=== PATIENT | female | born 1955 | race Caucasian/White ===

== ENCOUNTER 2020-09-28 15:29 | Outpatient (CLI) | payer OTHER, SELFPAY ==
--- NOTE | ~2020-09-28 | MR_ITS ---
EXAMINATION: MR knee LT wo con DATE: 09/28/2020 16:55 INDICATION: Left knee pain and difficulty walking. TECHNIQUE: Magnetic resonance imaging (MRI) of the left knee was performed without intravenous contra st. Sequences included coronal PD-weighted FSE, coronal PD-weighted FS FSE, sagittal T2-weighted FSE , sagittal PD-weighted FS FSE and axial PD weighted fat saturated FSE. COMPARISON: None. FINDINGS: Medial compartment: Radial tear involving the inner third of the posterior horn of the medial meniscus. Articular cartila ge is normal. Lateral compartment: Thin horizontal line of increased signal which extends to near the free edge of the body of the later al meniscus but which does not unambiguously contact the articular surface which remains equivocal fo r a longitudinal horizontal tear. Articular cartilage is normal. Patellofemoral compartment: Full/near full-thickness chondral ulceration at the patellar apical ridge, lateral side of the medial patellar facet and significant portion of the lateral patellar facet with a couple foci of underlyin g subarticular edema. Additional full/near full thickness cartilage loss along the lateral trochlea w ith subtle cortical irregularity and a few underlying foci of subarticular edema. Chondral fissuring with additional minimal underlying cortical irregularity at the trochlear groove and inferior aspect of the medial trochlea. Ligaments and tendons: Anterior and posterior cruciate ligaments are normal. The medial collateral ligament and fibular bayron ateral ligament complex are normal. Small enthesophytes at the patellar insertion of the distal quadr iceps tendon. The extensor mechanism is otherwise normal. The visualized medial and lateral hamstring tendons as well as the iliotibial band are normal. Fluid: Physiologic amount of fluid in the joint space. No loose osteochondral bodies identified. Tiny Suarez' s cyst. Additional small multilobulated ganglion cyst extending cephalad along the deep margin of the semimembranosus tendon. Osseous/other: There is prominent marrow edema centered around a small linear subarticular low signal intensity like ly impaction fracture line at the lateral sulcus of the lateral femoral condyle. Marrow signal is oth erwise normal. No pathologic marrow replacing process. IMPRESSION: 1. Small subcortical fracture line underlying the lateral sulcus of the lateral femoral condyle. 2. Small radial tear at the anterior third of the posterior horn of the medial meniscus. 3. Possible longitudinal horizontal tear at the body of the lateral meniscus. 4. Mild to moderate osteoarthritis with high-grade chondromalacia in the patellofemoral compartment. Reviewed, dictated and finalized at location A. ER AND CASHIER IMPRESSION: 1. Small subcortical fracture line underlying the lateral sulcus of the lateral femoral condyle. 2. Small radial tear at the anterior third of the posterior horn of the medial meniscus. 3. Possible longitudinal horizontal tear at the body of the lateral meniscus. 4. Mild to moderate osteoarthritis with high-grade chondromalacia in the patell ofemoral compartment.
== END 2020-09-28 15:30 | disposition home or self-care (01) ==
PROVIDERS: PCP Internal Medicine; Visit Provider Internal Medicine
DX: M17.12 Unilateral primary osteoarthritis, left knee (principal); S83.242A Other tear of medial meniscus, current injury, left knee, initial encounter; X58.XXXA Exposure to other specified factors, initial encounter
CPT/HCPCS: 73721

== ENCOUNTER → 2021-05-09 17:18 | Outpatient (CLI) | payer OTHER, SELFPAY ==
--- NOTE | ~2021-05-09 | MM_ITS ---
EXAMINATION: MM screening [facility] BI w mina HISTORY: Screening mammogram, family history of breast cancer in her sister. TECHNIQUE: Craniocaudal and mediolateral oblique 3-D tomosynthesis images were obtained and synthetic 2-D images were generated. CAD analysis was submitted and interpreted. COMPARISON: 11/13/2017, 10/30/2017, 04/18/2016 BREAST PARENCHYMAL COMPOSITION: The breasts are almost entirely fatty. FINDINGS: A stable mass of the upper outer quadrant of the left breast has previously characterized a s a cyst. There is no evidence of suspicious mass, calcification, or architectural distortion to sugg est malignancy in either breast. There has been no suspicious interval change. IMPRESSION: 1. No mammographic evidence of malignancy. 2. Recommend routine screening mammography in one year. BI-RADS Category 2: Benign finding(s). Reviewed, dictated and finalized at location A.
--- NOTE | ~2021-05-09 | DEXA_ITS ---
Bone Density Report Name: Deisi Jarquin Age: 65 Sex: Female Ethnicity: White Date of : 1955 Indication: osteopenia; height loss; hysterectomy; postmenopausal Referring Provider: FRANCKCM Fernandez Study: Bone densitometry was performed. Exam Date: May 09, 2021 Accession number: [id number] Bone Density: Region BMD T-score Z-score Classification AP Spine (L1-L4) 0.901 -1.3 0.6 Osteopenia Femoral Neck (Left) 0.598 -2.3 -0.6 Osteopenia Total Hip (Left) 0.825 -1.0 0.4 Normal Femoral Neck (Right) 0.651 -1.8 -0.1 Osteopenia Total Hip (Right) 0.855 -0.7 0.7 Normal Total Hip Mean 0.840 -0.9 0.6 Normal World Health Organization criteria for BMD impression classify patients as: Normal (T-score at or above -1.0), Osteopenia (T-score between -1.0 and -2.5), or Osteoporosis (T-score at or below -2.5). 10-year Fracture Risk(1): Major Osteoporotic Fracture 12% Hip Fracture 2.3% Reported Risk Factors: [place] (), Neck BMD=0.598, BMI=29.7 (1) FRAX(R) Version 3.08. Fracture probability calculated for an untreated patient. Fracture probability may be lower if the patient has received treatment. Previous Exams: Region Exam Age BMD T-score BMD Change BMD Change Date g/cm2 vs Baseline vs Previous AP Spine(L1-L4) 05/09/2021 65 0.901 -1.3 -0.019 -0.022 10/30/2017 62 0.923 -1.1 0.004 0.004 03/13/2012 56 0.919 -1.2 Total Hip(Left) 05/09/2021 65 0.825 -1.0 -0.101* -0.058* 10/30/2017 62 0.883 -0.5 -0.043* -0.043* 03/13/2012 56 0.926 -0.1 Total Hip(Right) 05/09/2021 65 0.855 -0.7 -0.072* -0.043* 10/30/2017 62 0.898 -0.4 -0.029* -0.029* 03/13/2012 56 0.927 -0.1 *Denotes significance at 95% confidence level, LSC for AP Spine = 0.022 g/cm2, LSC for Total Hip = 0.027 g/cm2 Clinical Information Provided by Patient: Has used the following medications: Vitamin D, Calcium Has the following medical conditions: Hysterectomy Patient maximum height was 66 Menopause Age: 46 No regular weight bearing exercise Does not regularly consume dairy products Onset of menses at age 8 Number of children 2 Impression: The patient has low bone mass, based on the Left Femoral Neck T-score. The patient has an estimated ten-year risk of hip fracture of 2.3% and an estimated ten-year risk of major fracture of 12%, based on the WHO FRAX al
== END ==
PROVIDERS: PCP Internal Medicine; Visit Provider Nurse Practitioner Family
DX: Z12.31 Encounter for screening mammogram for malignant neoplasm of breast (principal); M85.88 Other specified disorders of bone density and structure, other site; M85.851 Other specified disorders of bone density and structure, right thigh; M85.852 Other specified disorders of bone density and structure, left thigh
CPT/HCPCS: 77063; 77067; 77080

== ENCOUNTER 2021-06-20 14:08 | Outpatient (CLI) | payer OTHER, SELFPAY ==
[2021-06-20 15:33] LABS: Hematocrit 38.1 % (37.0-47.0); Hemoglobin 12.9 g/dL (12.0-15.0)
--- NOTE | 2021-06-20 15:36 | ECG_ITS ---
Measurements Intervals [place] Rate: 56 P: 40 MI: 151 QRS: 23 QRSD: 92 T: 57 QT: 422 QTc: 410 Interpretive Statements SINUS BRADYCARDIA MINIMAL Q WAVES- INFERIOR LEADS NONSPECIFIC T-WAVE ABNORMALITY- ANTERIOR LEADS BORDERLINE ECG Electronically Signed On 06-20-2021 16:06:46 CDT by Jonathan Horne D.O.
[2021-06-20 16:00] LABS: Albumin Level 4.5 g/dL (3.5-5.1); Estimated Glomerular Filt Rate > 60; Glucose 86 mg/dL (65-110)
== END 2021-06-20 14:09 | disposition home or self-care (01) ==
PROVIDERS: PCP Internal Medicine; Visit Provider Orthopaedic Surgery
DX: M17.12 Unilateral primary osteoarthritis, left knee (principal); Z01.818 Encounter for other preprocedural examination; R94.31 Abnormal electrocardiogram [ECG] [EKG]
CPT/HCPCS: 36415; 82040; 82565; 82947; 85014; 85018; 93005

== ENCOUNTER 2021-09-04 08:03 | Outpatient (CLI) | payer OTHER, SELFPAY ==
[2021-09-04 09:19] LABS: Basophils Absolute Auto 0.1 K/mm3 (0.0-0.1); Basophils Percent Auto 0.7 % (0.2-1.2); Eosinophils Absolute Auto 0.2 K/mm3 (0-0.3); Hematocrit 42.1 % (37.0-47.0); Immature Granulocyte Absolute 0.01 K/mm3 (0.00-0.031); Immature Granulocyte Percent A 0.1 % (0-0.5); Lymphocytes Absolute Auto 1.59 K/mm3 (0.9-3.2); Lymphocytes Percent Auto 22.9 % (18.3-44.2); Mean Corpuscular HGB Conc 33.3 g/dl (32-36); Mean Corpuscular Hemoglobin 30.2 pg (26-34); Mean Corpuscular Volume 90.9 fl (80-100); Mean Platelet Volume 10.1 fl (7.4-10.4); Monocytes Absolute Auto 0.6 K/mm3 (0.1-0.6); Monocytes Percent Auto 9.2 % (2.6-8.5); Neutrophils Absolute Auto 4.5 K/mm3 (1.3-6.7); Neutrophils Percent Auto 64.1 % (45.5-73.1); Platelet Count Result 293 k/mm3 (150-375); Red Blood Count 4.63 M/mm3 (4.2-5.4); Red Cell Distribution Width 12.6 % (11.5-14.5)
[2021-09-04 09:30] LABS: Albumin Level 4.8 g/dL (3.5-5.1); Estimated Glomerular Filt Rate > 60; Glucose 90 mg/dL (65-110)
[2021-09-04 09:42] LABS: Urine Cotinine NEGATIVE
[2021-09-04 09:46] LABS: Hemoglobin A1C 5.3 % (<5.7)
== END 2021-09-04 08:04 | disposition home or self-care (01) ==
LOC: ANHSURGERY 08:07
PROVIDERS: PCP Internal Medicine; Visit Provider Orthopaedic Surgery
DX: M17.12 Unilateral primary osteoarthritis, left knee (principal); Z01.818 Encounter for other preprocedural examination
CPT/HCPCS: 80307; 82040; 82565; 82947; 83036; 85025; 87081

== ENCOUNTER 2021-09-26 01:56 | Day surgery (SDC) | payer OTHER, SELFPAY ==
[2021-09-04 08:14] VITALS: BMI 28.1
[2021-09-04 08:58] VITALS: BP 133/68; PULSE 65; RESP 16; TEMP 37.3; O2SAT 99
--- NOTE | 2021-09-25 16:21 | WPDANESEPPF ---
Anes - Initial Pre Proc Eval Procedure: Operation Date: 09/26/21 10:30 Proposed Procedures p Left Total Knee Arthroplasty - Dominick Gonzalez MD Date/Time: 09/25/21 16:21 Surgeon: Dominick Gonzalez MD Pre Op Diagnosis: Primary OA Left Knee Patient Data Age: 66 Gender: F Height: 1.66 m Weight: 77.9 kg Last Vital Signs Temp 37.3 C 09/04/21 08:58 Pulse 65 09/04/21 08:58 Resp 16 09/04/21 08:58 BP 133/68 09/04/21 08:58 Pulse Ox 99 09/04/21 08:58 Allergies Allergy/AdvReac Type Severity Reaction Status Date / Time No Known Allergies Allergy Verified 09/26/21 08:57 Home Medications Medication Instructions Recorded Confirmed Type albuterol sulfate 90 mcg/actuation 2 puff INHALATION Q6H PRN g 09/08/20 09/26/21 History aerosol inhaler biotin 10,000 mcg disintegrating 10,000 mcg PO DAILY 09/08/20 09/26/21 History tablet calcium carbonate-vitamin D3 600 1 tablet PO DAILY 09/08/20 09/26/21 History mg calcium-200 unit chewable tablet cholecalciferol (vitamin D3) 125 125 mcg PO DAILY 09/08/20 09/26/21 History mcg (5,000 unit) capsule coenzyme Q10 100 mg capsule 100 mg PO DAILY 09/08/20 09/26/21 History loratadine-pseudoephedrine ER 10 1 tablet PO PRN PRN 09/08/20 09/26/21 History mg-240 mg tablet,extended [id number] vitamin E 200 unit capsule 200 unit PO DAILY 09/08/20 09/26/21 History Lactobacillus acidophilus 2,000 mmu cells PO DAILY 09/04/21 09/26/21 History [Acidophilus] cyanocobalamin (vitamin B-12) 1,000 mcg PO DAILY 09/04/21 09/26/21 History famotidine [Acid Hyperbaric Technologist 20 mg PO PRN PRN 09/04/21 09/26/21 History (famotidine)] magnesium 15 mg PO DAILY 09/04/21 09/26/21 History naproxen sodium [Aleve] 220 mg PO Q12H PRN 09/04/21 09/26/21 History selenium 200 mcg PO DAILY 09/04/21 09/26/21 History zinc 50 mg PO DAILY 09/04/21 09/26/21 History ECG: Date of Service: 06/20/21 Procedure(s): CA 12 lead EKG Accession Number(s): [id number] cc: ~ Measurements Intervals [place] Rate: 56 P: 40 AR: 151 QRS: 23 QRSD: 92 T: 57 QT: 422 QTc: 410 Interpretive Statements SINUS BRADYCARDIA MINIMAL Q WAVES- INFERIOR LEADS NONSPECIFIC T-WAVE ABNORMALITY- ANTERIOR LEADS BORDERLINE ECG Electronically Signed On 06-20-2021 16:06:46 CDT by Jonathan Horne D.O. Patient hx anesthesia problems: none Family hx anesthesia problems: none Results Review: All pre-operative results and documents have been reviewed as part of the pre-operative evaluation. [facility] Past Medical History Medical History (Updated 09/25/21 @ 16:22 by John Resendez MD) Arthritis Chronic neck pain Claudication of both lower extremities Depression Gastroenteritis Gout Influenza Mass of breast, left Osteoarthritis of neck Osteopenia Patellofemoral arthritis of left knee Pharyngitis Radiculopathy Radiculopathy Surgical History Surgical History H/O: hysterectomy History of appendectomy History of back surgery History of hand surgery Family History Family History Mother Hypertension Heart disease Father Cancer Other Diabetes mellitus Sibling Breast cancer Social History Social History Smoking status: Never smoker Additional smoking assessment comments: DENIES ANY FORM OF TOBACCO USE Alcohol intake: never Substance use: never Living arrangements: with family Spiritual care concerns: No Anes - Eval Final PreProcedure Day of Procedure 09/25/21 16:21 Patient weight: overweight Heart: regular ra
[2021-09-26] VITALS (19 sets, daily range): BP systolic 102–128; BP diastolic 48–76; PULSE 58–78; RESP 13–18; TEMP 35.7–36.7; O2SAT 95–100; BMI 27.7
--- NOTE | ~2021-09-26 | XR_ITS ---
EXAMINATION: XR knee LT 2V DATE: 09/26/2021 11:54 INDICATION: Postoperative evaluation following left total knee arthroplasty. TECHNIQUE: Anteroposterior and lateral views of the left knee were obtained. COMPARISON: None. FINDINGS: Left total knee arthroplasty with patellar resurfacing appears well seated and in near anatomic align ment. No fractures identified. Expected postoperative subcutaneous and intramedullary and intra-tri cular gas. IMPRESSION: 1. Left total knee arthroplasty, negative for postoperative purposes. Reviewed, dictated and finalized at location A.
--- NOTE | 2021-09-26 07:22 | WPDHPUPDATE1 ---
History and Physical Update Update Date/Time: 09/26/21 07:22 History and Physical has been reviewed, including an updated exam of the patient. There are NO changes in the patient's condition. Risks, benefits, and alternatives have been discussed and questions answered. Patient agrees to proceed with procedure.
[2021-09-26] MEDS: ACETAMINOPHEN 500 MG TABLET 1000 MG PO (09:12)
--- NOTE | 2021-09-26 09:17 | WPDANESPNB ---
Anes - Peripheral Nerve Block Date/Time: 09/26/21 09:17 I have discussed with the patient/family/POA the placement of a peripheral nerve block for post-operative pain management, including associated risks, benefits, complications, and side effects. Alternative methods of post-operative analgesia were detailed. Questions were solicited and answers provided to the satisfaction of the patient/family/POA. Time-Out: A pre-procedural Time-Out was completed immediately before starting the procedure and confirmed: Patient Identification, Site, Procedure, Patient Position and the Availability of Requisite Equipment. Clinical Indications: Acute post-operative pain management requested by the operative surgeon. Nerve Block Insertion Note Anes-nerve block: adductor canal left Patient position: supine Skin prep: chlorhexidine Needle: 22 gauge, stimulating, insulated echogenic needle. Needle length: 80 mm Technique: ultrasound Technique comment: in plane Injectate: bupivacaine 0.25% with epi 5 mcg/ml (30cc) Observations: tolerated well Complications: none Procedure start time:: 940 Procedure end time:: 945
[2021-09-26] MEDS: TRANEXAMIC ACID 1,000MG/ISO100 1,000 MG/100 ML BAG 200 MG IVPB (09:30)
[2021-09-26] MEDS: LACTATED RINGERS 1,000 ML 30 ML IV CONT ×2 (09:34→11:37)
[2021-09-26] MEDS: SCOPOLAMINE 1.5 MG PATCH TRANSDERM (09:37)
[2021-09-26] MEDS: ceFAZolin 2 GM/D5W 50 ML 2 GM/50 ML BAG IVPB ×2 (09:51→16:53)
--- NOTE | 2021-09-26 10:25 | SUR.PREOP ---
late note, 0915: DR MELVIN NOTIFIED THAT PT STATES SHE IS HAVING SINUS DRAINAGE AND A SLIGHT COUGH. HAVE NOT HEARD PT COUGH TODAY.
[2021-09-26] MEDS: fentaNYL CITRATE INJ (*CRX) 100 MCG/2 ML VIAL 25 MCG IV PUSH ×6 (12:05→12:55)
--- NOTE | 2021-09-26 13:10 | ADMGEN ---
This patient, Deisi Jarquin, was admitted to Medical Room 248-01. Patient/family oriented to hospital policies and general routines including ID bracelet, bed and alarms, visiting hours, pain management, procedures, bathroom and other care routines, personal items, smoking policy, room service/diet, and visiting hours. Information on how to activate the Rapid Response Team has been discussed. Patient/Family are encouraged to report perceived risks to care and to ask questions if they do not understand what they are told or what they should do.
[2021-09-26] MEDS: SODIUM CHLORIDE 0.9% IV 1,000 ML 125 ML IV CONT (13:23)
[2021-09-26] MEDS: ONDANSETRON INJ 4 MG/2 ML VIAL IV PUSH (14:22)
[2021-09-26] MEDS: oxyCODONE HCL (*CRX) 5 MG TAB IR 10 MG PO (15:45)
--- NOTE | 2021-09-26 15:45 | PCOTNOTE ---
Attempted to evaluate for occupational therapy. pt. refused due to nausea and vomiting. nurse confirmed holding off until nausea is resolved.
--- NOTE | 2021-09-26 16:06 | P.OP_ITS ---
Procedure Note - Detailed Date of Procedure 09/26/21 Pre-op Diagnosis Primary OA Left Knee Post-op Diagnosis same Procedure Performed Left total knee arthroplasty. Surgeon Dominick Gonzalez MD Oral And Maxillofacial Pathologist Ciera Palomo PA-C Anesthesia general and regional Description of Procedure The patient was brought to the operating room. A general anesthetic was administered. The leg was prepped and draped in the usual sterile fashion. The limb was elevated and the tourniquet inflated to 300 mmHg during initial exposure, and cementation. A longitudinal incision was created along the medial border of the patella and patellar tendon, and a minimally invasive optimized mid-vastus approach to the knee was performed. A mild medial release was taken. The knee was then flexed. The osteophytes were carefully removed. The intramedullary guide was placed in the femoral canal. The distal femoral resection was then taken with the oscillating saw. The collateral ligaments were carefully protected. The tibia was carefully exposed. The jig was applied, and the proximal tibia was resected according to preoperative plan. The knee was balanced in extension. Appropriate releases were taken where needed. The anterior cruciate ligament and meniscal remnants were removed. The posterior cruciate ligament was preserved. The patella was measured. Patellar resection was carried out with the oscillating saw. The lug holes drilled. The femur was sized and rotation assessed using a combination of gap balancing, posterior referencing, and the AP axis. The 4 in 1 cutting block was used to finish the femoral cuts after equal gaps were assured. The osteophytes were carefully removed from the back of the knee. The knee was copiously irrigated with antibiotic solution periodically throughout the procedure. The meniscal remnants were removed. The spacer block was used to confirm equal flexion and extension gaps. Further releases were performed as needed. The tibia was sized and broached. The bony surfaces were prepared for cementing with pulsatile lavage. The real tibial and femoral and patellar components were cemented into position. Excess cement was carefully removed. Patellar tracking was carefully assessed. No additional releases were required. Dilute sterile Betadine soak performed for three minutes. Copious irrigation then performed. The wound was closed with #1 Vycril suture, #2 Quill suture, 0-Quill suture, and 2-0 Quill suture followed by Steri-Strips. A sterile bulky dressing was applied. Meticulous hemostasis was maintained throughout the procedure. The pain relieving mixture was injected into the periarticular tissues during the procedure. There were no complications. The patient was extubated and brought to the recovery room in stable condition after the application of sterile dressing with Benigno bandage. Physician bankruptcy assistant, Ciera Palomo PA-C, required for surgery; including patient positioning, draping, tissue retraction, maintaining instrument position, cement removal, wound closure, and dressing placement. Implants Soicos Triathlon knee system, low profile cemented tibia size 3, cemented cruciate retaining femoral component size 3 ,and an 9 mm cruciate retaining polyethylene insert. 35mm asymmetric all polyethylene patella component. Estimated Blood Loss -100.0 Drains No Pathology none sent Complications No immediate complications Condition stable Disposition PACU
[2021-09-26] MEDS: ASPIRIN 81 MG ENTERIC TABLET PO (16:53)
[2021-09-26] MEDS: DOCUSATE SODIUM 100 MG CAPSULE PO (16:53)
[2021-09-26] MEDS: oxyCODONE HCL (*CRX) 5 MG TAB IR PO (21:03)
[2021-09-26] MEDS: FAMOTIDINE 20 MG TABLET PO (21:04)
[2021-09-27] MEDS: ceFAZolin 2 GM/D5W 50 ML 2 GM/50 ML BAG IVPB ×2 (00:04→08:29)
[2021-09-27 01:43] VITALS: BP 104/54; PULSE 58; RESP 16; TEMP 36.3; O2SAT 98
[2021-09-27] MEDS: ACETAMINOPHEN 500 MG TABLET 1000 MG PO (05:25)
[2021-09-27 05:47] VITALS: BP 103/69; PULSE 58; RESP 16; TEMP 36.6; O2SAT 100
[2021-09-27] MEDS: MAGNESIUM OXIDE 400 MG TABLET PO (08:27)
[2021-09-27] MEDS: VITAMIN E 100 UNIT CAPSULE 200 UNIT PO (08:27)
[2021-09-27] MEDS: CHOLECALCIFEROL 1,000 UNITS TABLET 5000 UNITS PO (08:27)
[2021-09-27] MEDS: CYANOCOBALAMIN 1,000 MCG TABLET 1000 MCG PO (08:28)
[2021-09-27] MEDS: ACIDOPHILUS/BULGARICUS CHEWABLE TABLET 1 TABLET PO (08:28)
[2021-09-27] MEDS: FAMOTIDINE 20 MG TABLET PO (08:28)
[2021-09-27] MEDS: ASPIRIN 81 MG ENTERIC TABLET PO (08:28)
[2021-09-27] MEDS: ZINC SULFATE 220 MG CAPSULE PO (08:28)
[2021-09-27] MEDS: DOCUSATE SODIUM 100 MG CAPSULE PO (08:42)
[2021-09-27 08:44] VITALS: RESP 16; O2SAT 100
--- NOTE | 2021-09-27 08:45 | PM.DS ---
DS: Admitting Diagnosis Discharge Date 09/27/21 Admitting Diagnosis OA knee Left DS: Discharge Diagnosis Discharge Diagnosis (1) Orthopedic aftercare for joint replacement: Code(s): Z47.1 - Aftercare following joint replacement surgery Status: Acute (2) Status post total left knee replacement: Code(s): Z96.652 - Presence of left artificial knee joint Status: Acute Assessment and Plan: Postop day 1: Left total knee arthroplasty. Patient tolerated procedure well. No complications. Pain manageable with pain medication. No numbness or tingling. We had a lengthy discussion regarding postoperative wound care, limitations, expectations, and exercises. Patient shows good understanding. She has had initial physical therapy and is tolerating it well. DVT prophylaxis: 81 mg baby aspirin b.i.d. for 14 days. Pain medication: Percocet. May take Aleve. Patient has followup appointment at [facility] in 3 weeks. DS: Summary Hospital Course Reason for hospitalization: Total knee arthroplasty Hospital Course: Patient tolerated procedure well. Has had initial PT/OT. Status at Discharge Functional status at discharge: uses cane/walker Overall status at discharge: patient is progressing back to baseline Time Spent with Patient Time attestation: Total time spent providing and/or coordinating discharge services: Exam Narrative: Thin 66-year-old female. Resting comfortably in chair. Alert and oriented x3. No acute distress. Wearing compression socks bilaterally. Dressing intact with no drainage. Moderate swelling. No ecchymosis. No erythema. No hematoma. Range of motion limited due to pain 0-90. Calf nontender. Neurologic status intact. No varicosities. Distal pulses palpable. DS: Data Data Completed and Pending Labs on day of discharge: Labs from last 24 hours 09/26/21 09:33 Blood Type O Positive Antibody Screen Negative Discharge Plan Discharge Patient Disposition: Home, Self-Care Discharge Instructions: Remove the Scopolamine patch that was placed behind your ear in 72 hours or less. Wash your hands after touching. Ortho instructions: See green instruction sheet Stand Alone Forms: General Discharge Instructions Follow-up/Referrals: Ciera Palomo PA [Physician Flight Kitchen Manager] - Discharge Medications: New aspirin 81 mg tablet,delayed release (DR/EC) 81 mg PO BID 14 Days Qty: 28 RF: 0 oxycodone-acetaminophen 5-325 mg tablet 1 - 2 tablet PO Q4-6H MDD 6 PRN (Reason: pain) Qty: 30 RF: 0 Continued albuterol sulfate [Proventil HFA] 90 mcg/actuation HFA aerosol inhaler 2 puff inhalation Q6H PRN (Reason: SOB) RF: 0 biotin 10,000 mcg tablet,disintegrating 10,000 mcg PO DAILY RF: 0 calcium carbonate-vitamin D3 600 mg calcium- 200 unit tablet,chewable 1 tablet PO DAILY RF: 0 coenzyme Q10 100 mg capsule 100 mg PO DAILY RF: 0 loratadine-pseudoephedrine 10-240 mg tablet extended release 24 hr 1 tablet PO PRN PRN (Reason: Allergy Symptoms) RF: 0 cholecalciferol (vitamin D3) 125 mcg (5,000 unit) capsule 125 mcg PO DAILY RF: 0 vitamin E 200 unit capsule 200 unit PO DAILY RF: 0 magnesium 500 mg Tablet 15 mg PO DAILY RF: 0 zinc 50 mg Tablet 50 mg PO DAILY RF: 0 cyanocobalamin (vitamin B-12) 1,000 mcg Tablet 1,000 mcg PO DAILY RF: 0 selenium 200 mcg Tablet 200 mcg PO DAILY RF: 0 Acidophilus Capsule 2,000 mmu cells PO DAILY RF: 0 naproxen sodium [Aleve] 220 mg Capsule 220 mg PO Q12H PRN (Reason: Pain) RF: 0 famotidine [Acid Gas Blender (famotidine)] 20 mg Tablet 20 mg PO PRN PRN (Reason: Heartburn) RF: 0
--- NOTE | 2021-09-27 09:27 | WPDANESPN ---
Anes - Prog Note Post-Op Date/Time: 09/27/21 09:27 Cardiovascular status: normal Respiratory status: normal Airway patency: baseline Mental status: baseline Post-Op hydration status: normal Vital Signs: Last Vital Signs Temp 36.6 C 09/27/21 05:47 Pulse 58 L 09/27/21 05:47 Resp 16 09/27/21 08:44 BP 103/69 09/27/21 05:47 Pulse Ox 100 09/27/21 08:44 Pain Score (VAS): 0 I/O: Intake & Output 09/26/21 09/27/21 09/27/21 23:59 07:59 15:59 Intake Total 390 550 640 Output Total 094 901 4291 Balance 240 -250 -360 09/26/21 09:33 Blood Type O Positive Antibody Screen Negative Post-procedural complaints: none Patient Feedback: Patient satisfied with anesthetic care.
[2021-09-27 10:05] VITALS: BP 118/70; PULSE 53; RESP 16; TEMP 36.6; O2SAT 100
== END 2021-09-27 13:10 | disposition home or self-care (01) ==
LOC: ANHSURGERY 12:14 → ANH2MED 13:06
PROVIDERS: PCP Internal Medicine; Visit Provider Orthopaedic Surgery
PROC: (CPT 27447; principal; 2021-09-26 10:30)
DX: M17.12 Unilateral primary osteoarthritis, left knee (principal); G89.18 Other acute postprocedural pain; Z79.51 Long term (current) use of inhaled steroids
CPT/HCPCS: 27447; 64447; 36415; 73560; 80307; 82040; 82565; 82947; 83036; 85025; 86850; 86900; 86901; 87081; 97110; 97116; 97161; 97165; 97530; A9270; C1713; C1776; J0171; J0690; J1100; J1885; J2250; J2270; J2405; J2704; J2795; J3010; J7030; J7120

== ENCOUNTER 2021-10-03 10:16 | Outpatient (CLI) | payer OTHER, SELFPAY ==
--- NOTE | ~2021-10-03 | US_ITS ---
EXAMINATION: US venous doppler [facility] DATE: 10/03/2021 11:02 INDICATION: Left lower limb swelling TECHNIQUE: Carrera scale images without and with compression and Doppler images of the left lower extrem ity veins were obtained. COMPARISON: None FINDINGS: The left common femoral vein, profunda femoral vein, femoral vein, popliteal vein, peroneal trunk, posterior tibial veins, and greater saphenous vein are patent. IMPRESSION: 1. Patent left lower extremity veins. No evidence of deep venous thrombosis. Reviewed, dictated and finalized at location B. MOBILE REPOSSESSOR
== END 2021-10-03 10:17 | disposition home or self-care (01) ==
LOC: ANHIMG 10:20
PROVIDERS: PCP Internal Medicine; Visit Provider Orthopaedic Surgery
DX: M79.89 Other specified soft tissue disorders (principal)
CPT/HCPCS: 93971

== ENCOUNTER → 2022-08-29 14:01 | Outpatient (CLI) | payer OTHER, SELFPAY ==
--- NOTE | ~2022-08-29 | MM_ITS ---
EXAMINATION: MM screening [facility] BI w mina HISTORY: Screening mammogram, family history of breast cancer in her sister. TECHNIQUE: Craniocaudal and mediolateral oblique 3-D tomosynthesis images were obtained and synthetic 2-D images were generated. CAD analysis was submitted and interpreted. COMPARISON: 05/09/2021, 11/13/2017, 10/30/2017, 04/18/2016 BREAST PARENCHYMAL COMPOSITION: The breasts are almost entirely fatty. FINDINGS: No suspicious mass, calcification, or architectural distortion are identified in either christopher ast to suggest malignancy. There has been no suspicious interval change. IMPRESSION: 1. No mammographic evidence of malignancy. 2. Recommend routine screening mammography in one year. BI-RADS Category 1: Negative Reviewed, dictated and finalized at location A.
== END ==
PROVIDERS: PCP Internal Medicine; Visit Provider Internal Medicine
DX: Z12.31 Encounter for screening mammogram for malignant neoplasm of breast (principal)
CPT/HCPCS: 77063; 77067

== ENCOUNTER 2024-08-31 12:04 | Outpatient (CLI) | payer OTHER, SELFPAY ==
--- NOTE | ~2024-08-31 | MM_ITS ---
EXAMINATION: MM screening [facility] BI w mina HISTORY: Screening TECHNIQUE: Craniocaudal and mediolateral oblique 3-D tomosynthesis images were obtained and synthetic 2-D images were generated. CAD analysis was submitted and interpreted. COMPARISON: Comparison to multiple prior studies sequentially, with oldest reviewed study dated 04/18. BREAST PARENCHYMAL COMPOSITION: Not Dense: The breasts are almost entirely fatty. FINDINGS: There is no evidence of suspicious mass, calcification, or architectural distortion to sugg est malignancy in either breast. There has been no suspicious interval change. IMPRESSION: 1. No mammographic evidence of malignancy. 2. Recommend routine screening mammography in one year. BI-RADS Category 1: Negative Reviewed, dictated and finalized at location B.
== END 2024-08-31 12:05 | disposition home or self-care (01) ==
PROVIDERS: PCP Internal Medicine; Visit Provider Internal Medicine
DX: Z12.31 Encounter for screening mammogram for malignant neoplasm of breast (principal)
CPT/HCPCS: 77063; 77067

== ENCOUNTER 2025-10-07 13:11 | Outpatient (CLI) | payer OTHER, SELFPAY ==
--- NOTE | ~2025-10-07 | XR_ITS ---
EXAMINATION: XR shoulder LT min 2V, 10/07/2025 13:41 FIRE SAFETY DIRECTOR HISTORY: Chronic left shouler pain COMPARISON: No comparisons available. Findings: No acute fracture or malalignment. No significant degenerative changes. Soft tissues unremarkable. Impression: No acute fracture or malalignment. Reviewed, dictated and finalized at location P. SAFETY DIRECTOR Impression: No acute fracture or malalignment.
--- OUTSIDE RECORDS SUMMARY | 2025-10-07 13:52 | XMS_ITS | Clinical Summary ---
Author Organization [facility] Address [address] [place] [address] Care Team Providers Care Decorating Machine Tender Name Role Phone Unavailable Primary Care Provider Unavailabl e Source Comments [facility],non-owned Affiliates and Associated Physician Practices is amultiple site organization consisting of ambulatory clinics and hospital sitesin [place], [place], [place] and [place]. This disclosure is being madepursuant to the Care Everywhere program and may not contain all information available regarding this patient. Last updated 18.[facility] [employer] Social History Tobacco Use Types Packs/Day Years Used Date Smoking Tobacco: Never Assessed Comments Unknown Sex and Gender Information Value Date Recorded Sex Assigned at Not on file Legal Sex Female 6:27 AM CLAIMS ADJUSTOR Gender Identity Not on file Sexual Orientation Not on file Plan of Treatment Health Maintenance Due Date Last Done Comments BONE DENSITY TESTING 1955 COLOGUARD (AGES 45-75) - COL ON CA SCREENING 1955 COLON MONITORING 1955 COLONOSCOPY - COLON CA SCREENING 1955 CT COLONOGRAPHY - COLON CA SCREENING 1955 Colorectal Cancer Screening 1955 FIT - COLON CA SCREENING 1955 FLEX SIG - COLON CA SCREENING 1955 LIPID TESTING 1955 MAMMOGRAM 1955 HEPATITIS C SCREENING 07/22/1971 DTAP/TDAP/TD VACCINES (1 - Tdap) 1972 PNEUMOCOCCAL VACCINE 50+ (1 of 1 - PCV) 2003 ZOSTER VACCINE (1 of 2) 2003 DEPRESSION SCREENING 11/25/2024 COVID-19 VACCINE (1 - 2024-2 6 season) 2025 INFLUENZA VACCINE (#1) 2025 Respiratory Syncytial Virus (RSV) Vaccine Pt: or over 60 yrs (1 - 1-dose 75+ series) 2028 HEPATITIS B VACCINE Aged Out No longe r eligible based on patient's age to complete this topic HIB VACCINE Aged Out No longer eligi ble based on patient's age to complete this topic HPV VACCINE Aged Out No longer eligi ble based on patient's age to complete this topic MENINGOCOCCAL (Group B) VACC INE SHARED DECISION-MAKING Aged Out No longer eligibl e based on patient's age to complete this topic MENINGOCOCCAL GROUPS A/C/Y/W VACCINE Aged Out No longer eligible b ased on patient's age to complete this topic Insurance [employer] [address] [address] [id number]
--- OUTSIDE RECORDS SUMMARY | 2025-10-07 13:52 | XMS_ITS | Clinical Summary ---
Author Organization [facility] Address [address] [place] [address] Care Team Providers Care Insurance Case Manager Name Role Phone Brijesh Ramirez MD Primary Care Provider [phone] Allergies No known active allergies Medications biotin 10,000 mcg tablet,disinteg rating Take 5,000 mcg by mouth daily Active calcium-vits F5-Y-S1-mineral s 166.75 mg- 166.75 unit capsule Rx: Calcium Active glucosam-chondr oitin-diet cb25 116-100 mg capsule Rx: Glucosamine Acti ve multivitamin (MULTIPLE VITAMINS DAILY ORAL) Rx: Multi Vitamin Daily Active potassium 99 mg tablet Take 1 tablet by mouth daily Active loratadine-pseu doephedrine (CLARITIN-D 24-hour) 10-240 mg per 24 hr tablet Take 1 tablet by mouth daily Active Active Problems Problem Noted Date Diagnosed Date Acute cystitis without hematuria 03/16/2019 Claudication of both lower extremities 9 Dysuria 03/16/2019 Elevated liver enzymes 03/16/2019 Hypokalemia 03/16/2019 Pain of both hip joints 03/16/2019 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 Osteopenia 11/15/2017 Mass of breast, left 11/01/2017 Chronic neck pain 09/30/2017 Menopause present 09/30/2017 Radiculopathy 09/30/2017 Vitamin D deficiency 10/31/2016 Urinary incontinence 10/25/2016 Diplopia 05/09/2016 Chest pain 01/19/2014 Depression 09/16/2012 Surgical History Surgery Date Site/Laterality Comments THUMB SURGERY Right EXCISION RT TRAP W/LRTI HAND SURGERY Social History Tobacco Use Types Packs/Day Years Used Date Smoking Tobacco: Never Smokeless Tobacco: Never Alcohol Use Standard Drinks/Week Comments Not Currently 0 (1 standard drink = 0.6 oz pur e alcohol) Personal Safety Answer Date Recorded Getting School Help Needed Not on file 02/08 Comments Unknown Sex and Gender Information Value Date Recorded Sex Assigned at Not on file Legal Sex Female 5:37 PM FILE CLERK Gender Identity Not on file Sexual Orientation Not on file Last Filed Vital Signs Vital Sign Reading Time Taken Comments Blood Pressure 129/79 05/11/2020 7:09 AM CDT Pulse 66 05/11/2020 7:09 AM CDT Temperature 36.7 C (98 F) 05/20/2020 10:03 AM CDT Respiratory Rate - - Oxygen Saturation 99% 05/11/2020 7:09 AM CDT Inhaled Oxygen Concentration - - Weight 76.2 kg (168 lb) 05/11/2020 7:09 AM CDT Height 165.1 cm (5' 5) 05/11/2020 7:09 AM CDT Body Mass Index 27.96 05/11/2020 7:09 AM CDT Plan of Treatment Not on file Insurance Care Teams Insurance Case Manager Relationship Specialty Start Date End Date Brijesh Ramirez MD [address] [place] [address] PCP - General Internal Medicine 03/12/19
--- OUTSIDE RECORDS SUMMARY | 2025-10-07 13:52 | XMS_ITS | Encounter Summary ---
Author Organization [facility] Address [address] [place] [address] Care Team Providers Care Electrician Master Name Role Phone Unavailable Primary Care Provider Unavailabl e Encounter Details Date Type Department Care Team (Late st Contact Info) Description 03/27/2021 Lab Requisition [facility] [address] [place] [id number] Chuck Maya MD [address] [facility] [place] [address] Social History Tobacco Use Types Packs/Day Years Used Date Smoking Tobacco: Never Assessed Comments Unknown Sex and Gender Information Value Date Recorded Sex Assigned at Not on file Legal 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 Gender Identity Not on file Sexual Orientation Not on file documented as of this encounter Plan of Treatment Not on file documented as of this encounter Procedures Procedure Name Priority Date/Time Associated Diagnosis Comments DERMATOPATHOLOGY Routine 03/23/2021 12:0 0 AM CDT documented in this encounter Results * DERMATOPATHOLOGY (03/23/2021 12:00 AM CDT) Case Report Dermatopathology Report Case: [id number] Authorizing Provider: Chuck Maya MD Collected: 03/23/2021 12:00 AM Ordering Location: [facility] Received: 03/27/2021 06:00 AM Pathologist: Alvaro Merrill MD Specimen: Skin, right lat calf 5:15 PM CDT DERMATOPATHOLOGY LABORATORY Final Diagnosis Specimen A. SKIN, right lat calf: LICHEN PLANUS-LIKE KERATOSIS (BENIGN LICHENOID KERATOSIS) (L82.1) 5:15 PM CDT DERMATOPATHOLOGY LABORATORY at 1715 CDT Clinical History ISK vs SCCA. Path # [id number]. 5:15 PM CDT DERMATOPATHOLOGY LABORATORY Gross Description Specimen A: Received is one formalin filled container labeled with the patient's name and designated right lat calf. The specimen consists of a shave biopsy measuring [id number]. Jar 0. 5:15 PM CDT DERMATOPATHOLOGY LABORATORY Microscopic Description Specimen A. SKIN, right lat calf: The epidermis is mildly acanthotic. There is a lichenoid infiltrate with vacuolar changes of basilar keratinocytes and scattered necrotic keratinocytes. 5:15 PM CDT DERMATOPATHOLOGY LABORATORY Disclaimer An external and internal positive and negative controls are appropriate for the histochemical, immunohistochemical and immunofluorescence stain(s) in this case (if any), except where stated explicitly. The performance characteristics of the stain(s) cited in this report were developed and its performance characteristic determined by the Dermatopathology Laboratory at [facility], directed by Dr. Juana Merrill. These tests need not be, and therefore are not, approved by the [place] Food and Drug Administration. The tests are used for clinical purposes. Billing Codes Specimen Charges Stain Charges 51402 1 5:15 PM CDT DERMATOPATHOLOGY LABORATORY Embedded Images 5:15 PM CDT DERMATOPATHOLOGY LABORATORY Pathology/Cytolog y TISSUE SPECIMEN FROM SKIN / Unknown 03/23/2021 03/27/2021 6:00 AM CDT us Chuck Maya MD LAB - PATHOLOGY/CYTOLOGY ORDER VENUS Final Result DERMATOPATHOLOGY LABORATORY [facility] - Department of Dermatology [address] [place] [address], [facility] [phone] documented in this encounter Visit Diagnoses Not on filedocumented in this encounter
--- OUTSIDE RECORDS SUMMARY | 2025-10-07 13:52 | XMS_ITS | Clinical Summary ---
Author Organization [facility] Care Team Providers Care Sugar Cane Grower Name Role Phone Unavailable Primary Care Provider Unavailabl e Social History Tobacco Use Types Packs/Day Years Used Date Smoking Tobacco: Never Assessed Comments Unknown Sex and Gender Information Value Date Recorded Sex Assigned at Not on file Legal Sex Female 3:06 PM CONTINUOUS IMPROVEMENT INTERN Gender Identity Not on file Sexual Orientation Not on file Plan of Treatment Health Maintenance Due Date Last Done Comments Hepatitis C Virus (HCV) Screening 1955 TdaP Immunization 1955 Cologuard 1998 Colonoscopy 1998 Colorectal Cancer Screening 1998 Immunochemical Fecal Occult Blood 1998 Pneumococcal Immunization (5 0+ years) (1 of 1 - PCV) 2003 Zoster Immunization (1 of 2) 2003 Influenza Immunization (#1) 2025 SARS-COV-2 Immunization ( - season) 2025 Respiratory Syncytial Virus (RSV) Immunization (Adult) (1 - 1-dose 75+ series) 2028 Hepatitis B Immunization Aged Out No longer eligible based on patient's age to complete this topic Human Papillomavirus (HPV) Immunization Aged Out No longer eligible b ased on patient's age to complete this topic Meningococcal Immunization (ACWY) Aged Out No longer eligible based on patient's age to complete this topic Rotavirus Immunization Aged Out No lo nger eligible based on patient's age to complete this topic
== END 2025-10-07 13:12 | disposition home or self-care (01) ==
PROVIDERS: Referring Provider Orthopaedic Surgery
DX: M25.512 Pain in left shoulder (principal); G89.29 Other chronic pain
CPT/HCPCS: 73030

== ENCOUNTER 2025-10-12 10:09 | Outpatient (CLI) | payer OTHER, SELFPAY ==
--- NOTE | ~2025-10-12 | DEXA_ITS ---
Bone Density Report Name: KATHERINE MULLEN Age: 70 Sex: Female Ethnicity: White Date of : 1955 Indication: osteopenia; height loss; hysterectomy; Referring Provider: PREM CHEUNG Study: Bone densitometry was performed. Exam Date: October 12, 2025 Accession number: [id number] Bone Density: Region BMD T-score Z-score Classification AP Spine(L1-L4) 0.852 -1.8 0.5 Osteopenia Femoral Neck (Left) 0.570 -2.5 -0.6 Osteoporosis Total Hip (Left) 0.797 -1.2 0.4 Osteopenia Femoral Neck (Right) 0.582 -2.4 -0.5 Osteopenia Total Hip (Right) 0.820 -1.0 0.6 Normal Total Hip Mean 0.808 -1.1 0.5 Osteopenia World Health Organization criteria for BMD impression classify patients as: Normal (T-score at or above -1.0), Osteopenia (T-score between -1.0 and -2.5), or Osteoporosis (T-score at or below -2.5). 10-year Fracture Risk: FRAX not reported because: Some T-score for Spine Total or Hip Total or Femoral Neck at or below -2.5 Previous Exams: -- Region Exam Age BMD T-score BMD Change BMD Change Date g/cm2 vs Baseline vs Previous -- AP Spine (L1-L4) 10/12/2025 70 0.852 -1.8 -7.4%* -5.4%* 05/09/2021 65 0.901 -1.3 -2.1% -2.4% 10/30/2017 62 0.923 -1.1 0.4% 0.4% 03/13/2012 56 0.919 -1.2 Total Hip(Left) 10/12/2025 70 0.797 -1.2 -13.9%* -3.4%* 05/09/2021 65 0.825 -1.0 -10.9%* -6.6%* 10/30/2017 62 0.883 -0.5 -4.6%* -4.6%* 03/13/2012 56 0.926 -0.1 Total Hip(Right) 10/12/2025 70 0.820 -1.0 -11.6%* -4.2%* 05/09/2021 65 0.855 -0.7 -7.8%* -4.7%* 10/30/2017 62 0.898 -0.4 -3.2%* -3.2%* 03/13/2012 56 0.927 -0.1 -- *Denotes significance at 95% confidence level, LSC for AP Spine = 0.022 g/cm2, LSC for Total Hip = 0.027 g/cm2 Clinical Information Provided by Patient: Has used the following medications: Vitamin D Has the following medical conditions: Hysterectomy Patient maximum height was 66 Menopause Age: 46 No regular weight bearing exercise Drinks caffeinated beverages Onset of menses at age 8 Number of children 2 Impression: The patient has osteoporosis, based on the Left Femoral Neck T-score. The BMD for the AP Spine (L1-L4) decreased, changing by -5.4% since the last DXA exam. The BMD for the Total Hip(Left) decreased, changing by -3.4% since the last DXA exam. The BMD for the Total Hip(Right) decreased, changing by -4.2% since the last DXA exam. Discussion: INCREASED RISK OF FRACTURE. BONE DENSITY IS UNDESIRABLY LOW AT ONE OR MORE SKELETAL SITES, CONSISTENT WITH POSTMENOPAUSAL OSTEOPOROSIS. This patient's lowest T-score meets the World Health Organization's (WHO) criteria for osteoporosis at one or more sites (T-score -2.5 or below). In untreated patients, the risk of osteoporotic fracture increases approximately two-fold for each 1.0 SD decrease in T-score. Low bone density is not the only risk factor for fracture; also consider factors such as patient's age, frailty or poor health, risk of falling, risk of injury, previous osteoporotic fracture, family history of osteoporosis, cigarette smoking, low body weight, etc. Not everyone with low bone mineral density has osteoporosis; osteomalacia and other metabolic bone disorders should also be considered. Patients who have osteoporosis should be evaluated for specific diseases and conditions (secondary causes) that may cause or contribute to bone loss. The [place] Association of Clinical Endocrinologists (AACE) and National Osteoporosis Foundation (NOF) recommend pharmacologic intervention for all postmenopausal women whose T-score is in this range. The patient should follow a healthful lifestyle (good nutrition with adequate calcium and vitamin D, and appropriate weight-bearing exercise). Follow-Up: Consider a repeat BMD and Vertebral Fracture Assessment (VFA) exam in 2 years or sooner if medically necessary, to reassess this patient's status. Reported by: PO on 10/12/2025 11:34:00 AM. Reviewed, dictated and finalized at location A.
== END 2025-10-12 10:10 | disposition home or self-care (01) ==
LOC: MICIMG 10:14
DX: Z78.0 Asymptomatic menopausal state (principal); M85.88 Other specified disorders of bone density and structure, other site; M85.852 Other specified disorders of bone density and structure, left thigh; M85.851 Other specified disorders of bone density and structure, right thigh
CPT/HCPCS: 77080